=== PATIENT | female | born 1990 | race Caucasian/White ===

== ENCOUNTER 2020-11-10 18:48 | Outpatient (CLI) | payer BC ==
[~2020-11-10] VITALS: Ht 160 cm; Wt 66.3 kg
[2020-11-10 19:03] VITALS: BP 128/72
[2020-11-10 19:23] LABS: MICROSCOPIC INDICATED
[2020-11-10] MEDS ORDERED: NITR100C56 PO (19:49)
== END 2020-11-10 19:55 | disposition home or self-care (01) ==
LOC: LDOP 18:48
PROVIDERS: ATTEND Obstetrics & Gynecology
DX: O26.893 Other specified pregnancy related conditions, third trimester (principal); R10.9 Unspecified abdominal pain; Z3A.32 32 weeks gestation of pregnancy
CPT/HCPCS: 59025; 81001; 87077; 87086

== ENCOUNTER 2020-12-23 14:12 | Inpatient (IN) | payer BC ==
[~2020-12-23] VITALS: Ht 160 cm; Wt 66.4 kg
[~2020-12-23 14:12] MED LIST: NITR100C56 PO
[2020-12-23 14:20] VITALS: BP 121/83
[2020-12-23] MEDS ORDERED: TERBUTALINE 1 MG/ML, 1ML SQ PRN (16:00)
[2020-12-23] MEDS ORDERED: PENICILLIN GK 5,000,000 UNITS in DEXTROSE 5% 100 ML IVPB ONE (16:00)
[2020-12-23] MEDS ORDERED: TERBUTALINE 1 MG/ML, 1ML IVPush PRN (16:00)
[2020-12-23] MEDS ORDERED: OXYTOCIN 30U/ 0.9% NaCL 500ML 500 ML IV PRN (16:00)
[2020-12-23] MEDS ORDERED: FENTANYL PF 100 MCG/2ML IV PRN (16:00)
[2020-12-23] MEDS ORDERED: LACTATED RINGERS 1,000 ML IV SCH (16:00)
[2020-12-23] MEDS ORDERED: OXYTOCIN 30U/ 0.9% NaCL 500ML 500 ML IV ONE (16:00)
[2020-12-23] MEDS ORDERED: ONDANSETRON 2MG/ML, 2ML IVPush PRN (16:00)
[2020-12-23] MEDS ORDERED: PREN-1 PO (16:14)
[2020-12-23 16:17] LABS: BASOPHILS % (AUTO) 1 % (0-1); EOSINOPHILS % (AUTO) 0 % (1-7); LYMPHOCYTES % (AUTO) 15 % (22-44); MEAN CORPUSCULAR HEMOGLOBIN 28.1 pg (27.0-34.8); MEAN CORPUSCULAR HGB CONC 33.9 g/dL (32.4-35.8); MEAN PLATELET VOLUME 8.8 fL (7.4-10.4); MONOCYTES % (AUTO) 5 % (2-9); NEUTROPHILS % (AUTO) 80 % (42-75); PLATELET COUNT 282 x10^3/uL (130-400); RED BLOOD COUNT 4.17 x10^6/uL (3.82-5.3); RED CELL DISTRIBUTION WIDTH 13.4 % (9.6-15.2)
[2020-12-23] MEDS ORDERED: LIDOCAINE 1%, 20ML ONE (17:25)
[2020-12-23] MEDS ORDERED: NEWBORN KIT ONE (17:25)
[2020-12-23] MEDS ORDERED: MISOPROSTOL 200 MCG TABLET ONE (17:26)
[2020-12-23] MEDS ORDERED: PENICILLIN GK 2,500,000 UNITS in DEXTROSE 5% 100 ML IVPB SCH (20:00)
[2020-12-23] MEDS: FENTANYL PF 100 MCG/2ML IVPush PRN ×2 (21:14→22:10)
[2020-12-23] MEDS ORDERED: FENTANYL/BUPIV./NS/PF 0 ML EPIDCONT ONE (21:50)
[2020-12-24] MEDS ORDERED: IBUPROFEN 600 MG TABLET ONE (00:15)
[2020-12-24] MEDS: IBUPROFEN 600 MG TABLET PO PRN ×4 (00:23→20:48)
[2020-12-24 00:30] VITALS: BP 130/76
[2020-12-24] MEDS ORDERED: SIMETHICONE 80 MG CHEW TAB PO PRN (00:30)
[2020-12-24] MEDS ORDERED: RHOGAM FROM BLOOD BANK 1 NOTE EA IM/IV ONE (00:30)
[2020-12-24] MEDS: OXYTOCIN 30U/ 0.9% NaCL 500ML 500 ML IV SCH ×3 (00:30→20:30)
[2020-12-24] MEDS ORDERED: ACETAMINOPHEN 325 MG TABLET PO PRN (00:30)
[2020-12-24] MEDS: OXYcodone/APAP 5/325MG TABLET PO PRN ×3 (00:36→20:48)
[2020-12-24 04:20] VITALS: BP 111/57
[2020-12-24 06:44] LABS: BASOPHILS % (AUTO) 0 % (0-1); EOSINOPHILS % (AUTO) 0 % (1-7); LYMPHOCYTES % (AUTO) 11 % (22-44); MEAN CORPUSCULAR HEMOGLOBIN 28.3 pg (27.0-34.8); MEAN CORPUSCULAR HGB CONC 34.3 g/dL (32.4-35.8); MEAN PLATELET VOLUME 8.7 fL (7.4-10.4); MONOCYTES % (AUTO) 7 % (2-9); NEUTROPHILS % (AUTO) 81 % (42-75); PLATELET COUNT 239 x10^3/uL (130-400); RED BLOOD COUNT 3.92 x10^6/uL (3.82-5.3); RED CELL DISTRIBUTION WIDTH 13.3 % (9.6-15.2)
[2020-12-24] MEDS: PRENATAL VIT/IRON/FA 1 EACH TABLET PO SCH ×2 (07:29→09:00)
[2020-12-24] MEDS: DOCUSATE 100 MG CAPSULE PO PRN ×2 (07:30→20:48)
[2020-12-24 08:08] VITALS: BP 122/80
[2020-12-24 12:15] VITALS: BP 128/85
[2020-12-24 18:24] VITALS: BP 135/83
[2020-12-25] MEDS: OXYTOCIN 30U/ 0.9% NaCL 500ML 500 ML IV SCH (06:30)
[2020-12-25 08:24] VITALS: BP 119/82
[2020-12-25] MEDS: PRENATAL VIT/IRON/FA 1 EACH TABLET PO SCH ×2 (09:00→09:22)
[2020-12-25] MEDS: OXYcodone/APAP 5/325MG TABLET PO PRN (09:22)
[2020-12-25] MEDS: DOCUSATE 100 MG CAPSULE PO PRN (09:22)
[2020-12-25] MEDS: IBUPROFEN 600 MG TABLET PO PRN (09:22)
== END 2020-12-25 14:50 | disposition home or self-care (01) | DRG 807 ==
LOC: LDOP 14:12 → LDIP 15:36 → 2NW 12-24 00:13
PROVIDERS: ADMIT Obstetrics & Gynecology; ATTEND Obstetrics & Gynecology
PROC: 10E0XZZ Delivery of Products of Conception, External Approach (ICD-10-PCS; principal; 2020-12-23)
DX: O34.211 Maternal care for low transverse scar from previous cesarean delivery (principal); Z37.0 Single live birth; Z79.899 Other long term (current) drug therapy; Z91.040 Latex allergy status; Z91.018 Allergy to other foods; Z20.822 Contact with and (suspected) exposure to COVID-19; O99.824 Streptococcus B carrier state complicating childbirth; Z3A.39 39 weeks gestation of pregnancy; Z88.7 Allergy status to serum and vaccine
CPT/HCPCS: 36415; 85025; 86592; 86850; 86900; 87635; G0378; J2540; J3010; J2590; J7120